=== PATIENT | male | born 1960 | race Caucasian/White ===

== ENCOUNTER 2017-05-14 18:02 | Emergency (ER) | payer OTHER ==
[~2017-05-14] VITALS: Ht 180.3 cm; Wt 103.9 kg
[2017-05-14 18:55] VITALS: BP 165/99
== END 2017-05-14 18:55 | disposition home or self-care (01) ==
LOC: ED 18:02
DX: R10.33 Periumbilical pain (principal); Z90.49 Acquired absence of other specified parts of digestive tract

== ENCOUNTER 2017-09-01 12:29 | Emergency (ER) | payer MEDICAID ==
[2017-09-01 14:59] VITALS: BP 133/79
== END 2017-09-01 15:05 | disposition home or self-care (01) ==
LOC: ED 12:29
DX: J02.9 Acute pharyngitis, unspecified (principal)

== ENCOUNTER 2018-01-01 16:01 | Emergency (ER) | payer OTHER ==
[~2018-01-01] VITALS: Ht 180.3 cm; Wt 101.6 kg
[2018-01-01 20:29] VITALS: BP 146/99
== END 2018-01-01 20:29 | disposition home or self-care (01) ==
LOC: ED 16:01
DX: R07.89 Other chest pain (principal)
CPT/HCPCS: J1885

== ENCOUNTER 2018-07-01 19:58 | Inpatient (IN) | payer OTHER ==
[~2018-07-01] VITALS: Ht 180.3 cm; Wt 104.8 kg
[2018-07-01 20:47] LABS: PLATELET COUNT 154 x10^3mcL (130-400); RED CELL DISTRIBUTION WIDTH 13.1 % (11.5-14.5)
[2018-07-01 21:13] LABS: CALCIUM 8.6 mg/dL (8.5-10.1); CARBON DIOXIDE 25.7 mmol/L (21-32); CHLORIDE SERUM 102 mmol/L (98-107); CREATININE SERUM 0.9 mg/dL (0.7-1.3); GFR1 > 60 mL/min; GLUCOSE SERUM 110 mg/dL (74-106); POTASSIUM SERUM 3.8 mmol/L (3.5-5.1); SODIUM SERUM 139 mmol/L (136-145)
[2018-07-01 21:18] LABS: ALBUMIN 3.9 g/dL (3.4-5.0); ALKALINE PHOSPHATASE 65 U/L (46-116); ALT/SGPT 33 U/L (16-63); AST/SGOT 22 U/L (15-37); BILIRUBIN TOTAL 0.9 mg/dL (0.20-1.00)
[2018-07-02] VITALS (7 sets, daily range): BP systolic 119–167; BP diastolic 71–107
[2018-07-02 02:47] LABS: T3 TOTAL 1.17 ng/mL
[2018-07-02 02:53] LABS: FREE T4 0.88 ng/dL (0.76-1.46); FREE THYROXINE INDEX 2.6 ug/dL (1.4-4.5); T4(THYROXINE) 8.1 ug/dL (4.7-13.3)
[2018-07-02 02:56] LABS: CHOLESTEROL/HDL RATIO 4.6; MAGNESIUM 1.9 mg/dL (1.8-2.4); PHOSPHOROUS 3.8 mg/dL (2.5-4.9)
[2018-07-02 03:40] LABS: BASOPHIL % 0.4 % (0-2); PLATELET COUNT 168 x10^3mcL (130-400); RED CELL DISTRIBUTION WIDTH 12.6 % (11.5-14.5)
[2018-07-02 03:55] LABS: CALCIUM 8.3 mg/dL (8.5-10.1); CARBON DIOXIDE 26.4 mmol/L (21-32); CHLORIDE SERUM 103 mmol/L (98-107); CREATININE SERUM 0.9 mg/dL (0.7-1.3); GFR1 > 60 mL/min; GLUCOSE SERUM 130 mg/dL (74-106); POTASSIUM SERUM 3.4 mmol/L (3.5-5.1); SODIUM SERUM 139 mmol/L (136-145)
[2018-07-02 08:11] LABS: microscopic required? NO
[2018-07-02 08:49] LABS: urine erythrocyte NEGATIVE (NEGATIVE)
[2018-07-02 08:59] LABS: AMPHETAMINE QUAL UR NONE DETECTED (See below)
== END 2018-07-02 17:49 | disposition home or self-care (01) | DRG 203 ==
LOC: ED 19:58 → DU 22:35
PROVIDERS: Emergency Medicine; Family Medicine
DX: M94.0 Chondrocostal junction syndrome [Tietze] (principal); E78.5 Hyperlipidemia, unspecified; E87.6 Hypokalemia; F15.10 Other stimulant abuse, uncomplicated; Z90.49 Acquired absence of other specified parts of digestive tract
CPT/HCPCS: 83880; 84439; 85378; J7030; Q0092

== ENCOUNTER 2019-09-06 06:13 | Inpatient (IN) | payer OTHER ==
[~2019-09-06] VITALS: Ht 180.3 cm; Wt 94.4 kg
--- NOTE | 2019-09-06 06:48 | NUR ---
PATIENT SEEN SITTING UP AT THE BEDSIDE WITH COMPLAINT OF FELLING DIZZY AND SHAKY. PATIENT REPORTS HE HAD SPINE SURGERY YESTERDAY. MD AT THE BEDSIDE. BLOOD SUGAR WAS DONE ORDERED, SAME IS 113 MG/DL.
[2019-09-06 07:08] LABS: BASOPHIL % 0.8 % (0-2); PLATELET COUNT 173 x10^3mcL (130-400); RED CELL DISTRIBUTION WIDTH 12.6 % (11.5-14.5)
--- NOTE | 2019-09-06 07:15 | NUR ---
RECIEVED REPORT FROM SHITAL MEEHAN FOR CONTINUED CARE OF PATIENT.
--- NOTE | 2019-09-06 07:39 | NUR ---
MEDICATED PER MD ORDERS
--- NOTE | 2019-09-06 08:05 | NUR ---
PT RESTING W/ EYES CLOSED IN DARKENED ROOM. HARD CERVICAL COLLAR ON. @ BEDSIDE. VSS.
--- NOTE | 2019-09-06 08:10 | NUR ---
CHEMISTRIES/TROPONIN STILL PENDING; CALLED ALBERT IN LAB WHO WILL LOOK INTO WHY RESULTS ARE NOT YET RELEASED.
[2019-09-06 08:24] LABS: ALBUMIN 3.9 g/dL (3.4-5.0); ALKALINE PHOSPHATASE 64 U/L (46-116); ALT/SGPT 28 U/L (16-63); AST/SGOT 20 U/L (15-37); BILIRUBIN TOTAL 1.57 mg/dL (0.20-1.00); CALCIUM 9.1 mg/dL (8.5-10.1); CHLORIDE SERUM 103 mmol/L (98-107); CREATININE SERUM 0.9 mg/dL (0.7-1.3); GFR1 > 60 mL/min; GLUCOSE SERUM 124 mg/dL (74-106); POTASSIUM SERUM 4.2 mmol/L (3.5-5.1); SODIUM SERUM 140 mmol/L (136-145); TOTAL PROTEIN, SERUM 7.2 g/dL (6.4-8.2)
--- NOTE | 2019-09-06 08:30 | NUR ---
PT ASSISTED TO TURN ONTO RT SIDE & PILLOW PROPPED BEHIND HIS BACK. PT STATES STILL NAUSEATED; DR HERNANDEZ NOTIFIED.
[2019-09-06 08:41] LABS: CARBON DIOXIDE 26 mmol/L (21-32)
--- NOTE | 2019-09-06 08:42 | NUR ---
MED IV PER ORDER FOR CONTINUED NAUSEA.
--- NOTE | 2019-09-06 09:10 | NUR ---
PT UP TO BATHROOM W/ ASSISTING.
--- NOTE | 2019-09-06 09:30 | NUR ---
PT IS ASLEEP.
--- NOTE | 2019-09-06 11:11 | NUR ---
LUNCH ORDERED PER DR HERNANDEZ. SOFT DIET
--- NOTE | 2019-09-06 11:17 | NUR ---
MEDICATED PER MD ORDERS. PATIENT SITTING UPRIGHT ON GURNEY- BEDSIDE, PT STS "I FEEL LIKE I'M GOING TO PASS OUT". BED PLACED IN LOW POSITION, SIDE RAILS UP FOR SAFETY. WILL CONTINUE TO MONITOR.
[2019-09-06] MEDS ORDERED: ACETAMINOPHEN &1 TA1 PO (11:21)
[2019-09-06] MEDS ORDERED: RANITIDINE HYD150 M2 PO (11:21)
[2019-09-06] MEDS ORDERED: ZESTRIL20 MG PO (11:22)
--- NOTE | 2019-09-06 11:38 | NUR ---
PROVIDED REPORT TO SHITAL JEFFERSCOMPOUND MACHINE OPERATOR FOR CONTINUED CARE PATIENT.
--- NOTE | 2019-09-06 11:52 | NUR ---
RECEIVED PATIENT FROM ER PER SALLY AWAKE,ALERT AND ORIENTED. PLACE COMFORTABLY ON BED. STILL C/O OF DIZZINESS. W/ HARD NECK COLLAR IN PLACE. C/O OF PAIN W/ SCALE 4/10 BUT DOESN'T WANT ANY PAIN MEDS.AT THIS TIME. HL ON THE RT AC INTACT.
[2019-09-06 12:05] VITALS: BP 142/77
[2019-09-06 13:46] LABS: CHOLESTEROL/HDL RATIO 3.7; MAGNESIUM 1.8 mg/dL (1.8-2.4)
--- NOTE | 2019-09-06 15:26 | NUR ---
Collected nasal swab for MRSA and patient ambulated to bathroom and back to bed without dizziness.
[2019-09-06 16:58] VITALS: BP 158/91
--- NOTE | 2019-09-06 17:20 | NUR ---
Patient assisted to the bathroom by . Patient reports constipation.
--- NOTE | 2019-09-06 19:30 | NUR ---
RECIEVED PATIENT AT START OF SHIFT A/O X4. NO SOB ON RA. STATES HIS NECK IS IRRITATING HIM BUT IS NOT PAINFUL. CERVICAL COLLAR IN PLACE WITH GUAZE DRESSING ON ANTERIOR OF NECK, CDI. STATES HE DOES NOT FEEL DIZZY ANYMORE AND DOES NOT HAVE TREMORS. IV IS INFUSING WITHOUT ERYTHEMA OR INFILTRATION. BED LOCKED AND IN LOWEST POSITION. CALL LIGHT AND BEDSIDE TABLE WITHIN REACH.
[2019-09-06 20:20] VITALS: BP 143/84
--- NOTE | 2019-09-06 21:00 | NUR ---
PATIENT IS REPORTING LOWER ABDOMINAL PAIN. HE STATES HE THINKS ITS BECAUSE HE HASNT POOPED IN [address] SHAY NOTIFIED. NEW ORDER OBTAINED FOR MILK OF MAGNESIA.
[2019-09-06 21:01] VITALS: BP 148/103
--- NOTE | 2019-09-06 21:16 | NUR ---
PATIENT GIVEN TYLENOL PER EMAR FOR REPORT OF 10/10 PAIN TO LOWWER ABDOMEN, ALONG WITH HIS SCHEDULED MILK OF MAGNESIA.
--- NOTE | 2019-09-07 00:15 | NUR ---
PATIENTS EYES ARE CLOSED, BREATHS EVEN AND REGULAR. NO SIGNS OF DISTRESS. CERVICAL COLLAR STILL IN PLACE. IV INFUSING WITHOUT ERYTHEMA OR INFILTRATION. CALL LIGHT WITHIN REACH.
[2019-09-07 05:15] VITALS: BP 142/83
--- NOTE | 2019-09-07 06:31 | NUR ---
PATIENT IS AWAKE AND REPORTS HIS STOMACH PAIN IS RELIEVED. DENIES DIZZINESS. NO SOB ON RA. IV IS INFUSING WITHOUT COMPLICATION. NO FURTHER SIGNIFICANT EVENTS THIS SHIFT. CALLLIGHT WITHIN REACH. WILL ENDORSE CARE TO DAYSHIFT NURSE.
[2019-09-07 07:08] LABS: BASOPHIL % 0.4 % (0-2); PLATELET COUNT 166 x10^3mcL (130-400); RED CELL DISTRIBUTION WIDTH 12.6 % (11.5-14.5)
[2019-09-07 07:17] LABS: CALCIUM 8.4 mg/dL (8.5-10.1); CARBON DIOXIDE 29.4 mmol/L (21-32); CHLORIDE SERUM 106 mmol/L (98-107); CREATININE SERUM 0.9 mg/dL (0.7-1.3); GFR1 > 60 mL/min; GLUCOSE SERUM 103 mg/dL (74-106); POTASSIUM SERUM 3.9 mmol/L (3.5-5.1); SODIUM SERUM 140 mmol/L (136-145)
[2019-09-07 09:18] VITALS: BP 148/94
--- NOTE | 2019-09-07 09:42 | NUR ---
Recieved report from night nurse at 0725. Patiet alert and oriented. IV running normal saline at 100 ml/hr. No complaints of dizziness or nausea or pain.
--- NOTE | 2019-09-07 10:34 | NUR ---
IV IN RAC INFILTRATED; LEAKING. IV CATHETER REMOVED INTACT. IV RESITED IN RFA AND IV INFUSION OF NS RESUMED AT 100ML/HR.
--- NOTE | 2019-09-07 15:42 | NUR ---
PATIENT AMBULATING IN HALLWAY. DENIES ANY DIZZINESS OR PAIN.
--- NOTE | 2019-09-07 16:06 | NUR ---
C/O HEADACHE. MEDICATED WITH TYLANOL PER EMAR.
[2019-09-07 17:56] VITALS: BP 136/89
--- NOTE | 2019-09-07 18:18 | NUR ---
AWAKE ALERT AND ORIENTED. VITAL SIGNS STABLE. NECK BRACE REMAINS IN PLACE. NECK DRESSING IS DRY AND INTACT. IV IS INFUSING 100 ML/HR. PATIENT AMBULATES IN HALLWAY AT TIMES. HE IS TOLERATING MECHANICAL SOFT DIET WITH NO DIFFICULTIES. HEADACHE RESOLVED AFTER RECIEVING TYELONAL. WILL ENDORSE CARE TO NIGHT NURSE.
--- NOTE | 2019-09-07 19:30 | NUR ---
RECIEVED PATIENT AT START OF SHIFT A/O X4. CERVICAL COLLAR IN PLACE, DRESSING TO ANTERIOR THROAT IS CDI. PATIENT DENIES PAIN, NO SOB ON RA. DENIES DIZZINESS, DENIES HEADACHE. IV IS PATENT AND INTACT, INFUSING WITHOUT COMPLICATION. CALL LIGHT WITHIN REACH.
[2019-09-07 19:57] VITALS: BP 146/98
--- NOTE | 2019-09-07 21:10 | NUR ---
PATIENT GIVEN CHOLRASEPTIC SPRAY FOR REPORT OF SORE THROAT.
--- NOTE | 2019-09-08 04:30 | NUR ---
PATIENT WOKE UP FEELING NAUSEOUS. MEDICATED WITH ZOFRAN PER EMAR.
[2019-09-08 04:39] VITALS: BP 143/100
--- NOTE | 2019-09-08 06:19 | NUR ---
PATIENT IS RESTING IN BED, EYES CLOSED, BREATHS EVEN. CERVICAL COLLAR REMAINS IN PLACE. NECK DRESSING IN PLACE CDI. IV INFUSING WITHOUT ERYTHEMA OR INFILTRATION. BED LOCKED AND IN LOWEST POSITION. CALL LIGHT AND BEDSIDE TABLE WITHIN REACH.
[2019-09-08 07:11] LABS: CALCIUM 8.8 mg/dL (8.5-10.1); CARBON DIOXIDE 25.7 mmol/L (21-32); CHLORIDE SERUM 105 mmol/L (98-107); CREATININE SERUM 0.8 mg/dL (0.7-1.3); GFR1 > 60 mL/min; GLUCOSE SERUM 112 mg/dL (74-106); POTASSIUM SERUM 4.1 mmol/L (3.5-5.1); SODIUM SERUM 140 mmol/L (136-145)
[2019-09-08 07:16] LABS: BASOPHIL % 0.4 % (0-2); PLATELET COUNT 174 x10^3mcL (130-400); RED CELL DISTRIBUTION WIDTH 12.4 % (11.5-14.5)
[2019-09-08 08:13] VITALS: BP 133/71
--- NOTE | 2019-09-08 08:23 | NUR ---
Recieved report from night nurse at 0730. Patient observed resting comfrotably. Cervuical collar in tact and cervical dressing site dry and in tact.
[2019-09-08] MEDS ORDERED: ZOF4 PO (11:37)
[2019-09-08] MEDS ORDERED: [UNRECOGNIZED DRUG - OTHER] MT (11:37)
[2019-09-08 12:11] VITALS: BP 133/71
--- NOTE | 2019-09-08 15:10 | NUR ---
AT 1215 - PATIENT AMBULATING IN HALLWAY. GOOD TOLERANCE FOR ACTIVITY. AT 1300 - ABLE TO TOLERATE DIET. NO SWALLOWING DIFFICULTIES OR C/O PAIN. RECEIVED DISCHARGE ORDERS. IV SALINE LOCKED. AT 1415 - IV CATHETER REMOVED INTACT. PRINTED DISCHARGE INSTRUCTIONS GIVEN AND EXPLAINED TO PATIENT AND . ELECTRONIC PRESCRIPTION HAS BEEN RECEIVED BY PATIENT'S PREFERRED PHARMACY. AT 1435 - DISCHARGED HOME WITH . TAKEN TO CAR IN WHEELCHAIR BY NURSE.
== END 2019-09-08 14:35 | disposition home or self-care (01) | DRG 812 ==
LOC: ED 06:13 → MU 11:22
PROVIDERS: Emergency Medicine; ADMIT Family Medicine
DX: T88.59XA Other complications of anesthesia, initial encounter (principal); I10 Essential (primary) hypertension; K21.9 Gastro-esophageal reflux disease without esophagitis; R42 Dizziness and giddiness; T41.295A Adverse effect of other general anesthetics, initial encounter; K12.2 Cellulitis and abscess of mouth; Y83.8 Other surgical procedures as the cause of abnormal reaction of the patient, or of later complication, without mention of misadventure at the time of the procedure; Z90.49 Acquired absence of other specified parts of digestive tract; Y92.89 Other specified places as the place of occurrence of the external cause
CPT/HCPCS: G0378; J2405; J2765; J3490; J7030